=== PATIENT | male | born 1995 | race Caucasian/White ===

== ENCOUNTER 2016-12-05 14:11 | Emergency (ER) | payer MEDICAID ==
[2016-12-05 15:30] VITALS: BP 123/57
== END 2016-12-05 15:46 | disposition home or self-care (01) ==
LOC: ED 14:11 → EDBD 14:11 → ED 15:46
DX: S51.811A Laceration without foreign body of right forearm, initial encounter (principal); I10 Essential (primary) hypertension; F10.129 Alcohol abuse with intoxication, unspecified; W18.09XA Striking against other object with subsequent fall, initial encounter; Y93.89 Activity, other specified; Y99.8 Other external cause status; Y92.89 Other specified places as the place of occurrence of the external cause
CPT/HCPCS: 90715; J2001

== ENCOUNTER 2016-12-15 19:24 | Emergency (ER) | payer MEDICAID ==
[~2016-12-15] VITALS: Ht 172.7 cm; Wt 72.6 kg
[2016-12-15 20:19] VITALS: BP 131/62
== END 2016-12-15 20:19 | disposition home or self-care (01) ==
LOC: ED 19:24
DX: S51.812D Laceration without foreign body of left forearm, subsequent encounter (principal); W25.XXXD Contact with sharp glass, subsequent encounter; Y92.89 Other specified places as the place of occurrence of the external cause; Y99.8 Other external cause status

== ENCOUNTER 2018-03-07 01:04 | Emergency (ER) | payer OTHER ==
[~2018-03-07] VITALS: Ht 167.6 cm; Wt 63.5 kg
[2018-03-07 01:19] VITALS: BP 132/91; Ht 167.6 cm; Wt 63.5 kg
== END 2018-03-07 01:57 | disposition other institution (70) ==
LOC: ED 01:04
DX: Z02.89 Encounter for other administrative examinations (principal)